=== PATIENT | female | born 1940 | race Hispanic/Latino ===

== ENCOUNTER 2018-07-14 12:32 | Outpatient (CLI) | payer MEDICARE, OTHER | END 2018-07-14 12:33 | disposition home or self-care (01) | LOC: OPLAB 12:32 ==

== ENCOUNTER 2018-08-02 08:45 | Outpatient (CLI) | payer MEDICARE, OTHER | END 2018-08-02 08:46 | disposition home or self-care (01) | LOC: RAD 08:45 ==